=== PATIENT | male | born 1960 | race Caucasian/White ===

== ENCOUNTER 2024-10-05 19:31 | Emergency (ER) | payer OTHER ==
[~2024-10-05] VITALS: Ht 188 cm; Wt 90.0 kg
[2024-10-05] VITALS (30 sets, daily range): BP systolic 119–157; BP diastolic 75–94
[~2024-10-05 19:31] MED LIST: EC-NAPROSYN500 MG OR
[2024-10-05 20:22] LABS: BASO% 0.7 % (0-3); EOS% 4.9 % (0-8); HEMATOCRIT 38.5 % (39.0-50.0); HEMOGLOBIN 12.9 g/dl (14.0-18.0); IMMATURE GRANULOCYTES 0.1 % (0.0-5.0); MEAN CELL VOLUME 91.7 fL CALC (80.0-100.0); MEAN CORPUSCULAR HGB 30.7 pG CALC (26.0-32.0); MEAN CORPUSCULAR HGB CONC 33.5 g/dL CAL (32.0-36.0); MONO% 9.9 % (2-13); NEUT# 4.36 thou/uL (1.82-7.42); NEUT% 59.4 % (42-76); RED BLOOD COUNT 4.2 mill/uL (4.70-6.10); RED CELL DISTRI WIDTH 12.6 % (11.5-15.5)
[2024-10-05] MEDS ORDERED: LISINOPRIL2.5 MG PO (20:25)
[2024-10-05] MEDS ORDERED: PLAVIX75 MG PO (20:25)
[2024-10-05] MEDS ORDERED: ATORVASTATIN CA10 MG PO (20:25)
[2024-10-05 20:32] LABS: ALBUMIN 4.5 g/dL (3.2-5.0); BILIRUBIN, TOTAL 0.4 mg/dL (0.2-1.3); CREATININE 1.1 mg/dL (0.7-1.3); POTASSIUM 3.8 mmol/l (3.5-5.1)
[2024-10-05] MEDS ORDERED: BACTRIM DS1 TAB PO (22:17)
[2024-10-05] MEDS ORDERED: SULFAMETHOXAZOLE W/TRIMETHOPRI 1 COMBO TAB PO ONE (22:20)
== END 2024-10-05 22:26 | disposition home or self-care (01) | DRG 603 ==
LOC: ED 19:31
PROVIDERS: Emergency Medicine
DX: L03.031 Cellulitis of right toe (principal)

== ENCOUNTER 2024-10-12 10:53 | Emergency (ER) | payer OTHER ==
[~2024-10-12] VITALS: Ht 188 cm; Wt 90.0 kg
[~2024-10-12 10:53] MED LIST changes: +ATORVASTATIN CA10 MG PO; +BACTRIM DS1 TAB PO; +LISINOPRIL2.5 MG PO; +PLAVIX75 MG PO
[2024-10-12 11:19] VITALS: BP 133/83
== END 2024-10-12 12:14 | disposition left against medical advice (07) | DRG 951 ==
LOC: ED 10:53
DX: Z53.21 Procedure and treatment not carried out due to patient leaving prior to being seen by health care provider (principal)

== ENCOUNTER 2024-10-12 19:39 | Emergency (ER) | payer OTHER ==
[~2024-10-12] VITALS: Ht 188 cm; Wt 90.7 kg
[2024-10-12 20:48] VITALS: BP 130/82
== END 2024-10-12 20:48 | disposition home or self-care (01) | DRG 603 ==
LOC: ED 19:39
DX: L03.031 Cellulitis of right toe (principal); I10 Essential (primary) hypertension; F17.200 Nicotine dependence, unspecified, uncomplicated